=== PATIENT | male | born 1950 | race Caucasian/White ===

== ENCOUNTER 2020-12-25 10:59 | Emergency (ER) | payer OTHER, BC ==
[2020-12-25 11:08] VITALS: BP 164/81; PULSE 107; TEMP 98.3; BMI 25.1
[2020-12-25] MEDS ORDERED: LACTATED RINGERS SOLUTION 1000 ML INFUS.BAG IV ONE (11:38)
[2020-12-25] MEDS ORDERED: ACETAMINOPHEN 1000 MG/100 ML VIAL (NON FORMULARY) IVPB ONE (11:38)
[2020-12-25] MEDS ORDERED: ACETAMINOPHEN INJECTION 100 ML IVPB ONE (12:27)
[2020-12-25 12:46] LABS: INR 1.04 (0.83-1.09); PROTHROMBIN TIME (PATIENT) 12.6 SEC (9.7-13.0)
[2020-12-25 12:48] LABS: ACTIVATED PTT 34.2 SECONDS (25.2-36.5)
[2020-12-25 12:57] LABS: PH,URINE 6.5 (5.0-8.0); URINE APPEARANCE CLEAR; URINE BILIRUBIN NEGATIVE (NEGATIVE); URINE COLOR YELLOW; URINE GLUCOSE (UA) NEGATIVE (NEGATIVE); URINE KETONE NEGATIVE (NEGATIVE); URINE LEUK ESTERASE NEGATIVE (NEGATIVE); URINE NITRITE NEGATIVE (NEGATIVE); URINE PROTEIN NEGATIVE (NEGATIVE); URINE UROBILINOGEN 0.2 mg/dL (0.2-1.0)
[2020-12-25 13:02] LABS: CHLORIDE 102 mmol/L (98-107); SODIUM 135 mmol/L (136-145)
[2020-12-25 13:04] LABS: ALBUMIN 4.1 g/dl (3.4-5.0); CALCIUM 9.2 mg/dL (8.5-10.1)
[2020-12-25 13:05] LABS: ANION GAP 9 MMOL/L (8-16); BLOOD UREA NITROGEN 11.9 mg/dL (7-18); CO2 25 mmol/L (21-32); GLUCOSE,RANDOM 93 mg/dL (74-106)
[2020-12-25 13:07] LABS: BASO % 0.4 % (0-2.0); EOS % 0.2 % (0-4.5); HEMATOCRIT 42.4 % (35.4-49); HEMOGLOBIN 14.6 GM/dL (11.7-16.9); LYMPH % 8.3 % (8-40); MCH 31.8 pg (25.7-33.7); MCHC 34.3 g/dl (32.0-35.9); MEAN CELL VOLUME 92.7 fl (80-96); MEAN PLT VOLUME 7.5 fl (7.5-11.1); MONO % 9.2 % (3.8-10.2); NEUT % 81.9 % (42.8-82.8); PLATELET COUNT 274 10^3/uL (134-434); RBC 4.57 M/mm3 (4.00-5.60); RDW 13.1 % (11.9-15.9); SGPT/ALT 28 U/L (13-61); WHITE BLOOD COUNT 8.1 K/mm3 (4.0-10.0)
[2020-12-25 13:08] LABS: SGOT/AST 25 U/L (15-37)
[2020-12-25 13:09] LABS: BILIRUBIN,TOTAL 1.4 mg/dL (0.2-1); TOT PROT 8.3 g/dl (6.4-8.2)
[2020-12-25 13:10] LABS: ALK PHOS 69 U/L (45-117)
== END 2020-12-25 15:36 | disposition home or self-care (01) ==
LOC: JER 10:59
PROC: 3E033NZ Introduction of Analgesics, Hypnotics, Sedatives into Peripheral Vein, Percutaneous Approach (ICD-10-PCS; principal; 2020-12-25)
DX: K57.92 Diverticulitis of intestine, part unspecified, without perforation or abscess without bleeding (principal)
CPT/HCPCS: 36415; 71045-TC-FY; 74177-TC; 80053; 81003; 84484; 85025; 85610; 85730; 87086; 93005; 93010; 99285-25; C9803; J0131; Q9967; U0003; U0005

== ENCOUNTER 2021-01-15 11:45 | Emergency (ER) | payer OTHER, BC ==
[2021-01-15 12:30] VITALS: BMI 24.4
[2021-01-15] MEDS ORDERED: ACETAMINOPHEN 325 MG TABLET (FP) PO ONE (12:54)
[2021-01-15] MEDS ORDERED: ACETAMINOPHEN 325 MG TABLET (FP) ONE (12:57)
[2021-01-15 13:34] LABS: BASO % 0.7 % (0-2.0); EOS % 0.3 % (0-4.5); HEMATOCRIT 40.6 % (35.4-49); HEMOGLOBIN 14.2 GM/dL (11.7-16.9); LYMPH % 11.6 % (8-40); MCH 32.3 pg (25.7-33.7); MEAN CELL VOLUME 92.3 fl (80-96); MEAN PLT VOLUME 7.3 fl (7.5-11.1); MONO % 9.2 % (3.8-10.2); NEUT % 78.2 % (42.8-82.8); PLATELET COUNT 298 10^3/uL (134-434); RBC 4.39 M/mm3 (4.00-5.60); RDW 12.7 % (11.9-15.9); WHITE BLOOD COUNT 7.6 K/mm3 (4.0-10.0)
[2021-01-15 13:55] LABS: ALBUMIN 4.2 g/dl (3.4-5.0)
[2021-01-15 13:56] LABS: BLOOD UREA NITROGEN 14.7 mg/dL (7-18); CALCIUM 8.9 mg/dL (8.5-10.1)
[2021-01-15 13:57] LABS: MAGNESIUM 2.1 mg/dL (1.8-2.4)
[2021-01-15 14:01] LABS: TOT PROT 8.2 g/dl (6.4-8.2)
[2021-01-15 16:34] VITALS: BP 149/75; PULSE 66; TEMP 97.8
== END 2021-01-15 16:34 | disposition home or self-care (01) ==
LOC: JER 11:45
DX: K57.92 Diverticulitis of intestine, part unspecified, without perforation or abscess without bleeding (principal)
CPT/HCPCS: 36415; 74177-TC; 80053; 83690; 83735; 85025; 93005; 93010; 99284-25; C9803; U0003; U0005

== ENCOUNTER 2022-03-08 10:38 | Emergency (ER) | payer OTHER, BC ==
[2022-03-08 11:34] VITALS: PULSE 98; RESP 18; TEMP 97.8; BMI 25.7
[2022-03-08 12:59] LABS: BASO % 0.6 % (0-2.0); EOS % 0.3 % (0-4.5); HEMATOCRIT 40.7 % (35.4-49); LYMPH % 13.7 % (8-40); MCH 31.5 pg (25.7-33.7); MCHC 34.4 g/dl (32.0-35.9); MEAN CELL VOLUME 91.4 fl (80-96); MEAN PLT VOLUME 7.5 fl (7.5-11.1); MONO % 8.3 % (3.8-10.2); NEUT % 77.1 % (42.8-82.8); PLATELET COUNT 228 10^3/uL (134-434); RBC 4.45 M/mm3 (4.00-5.60); RDW 13.6 % (11.9-15.9); WHITE BLOOD COUNT 6.7 K/mm3 (4.0-10.0)
[2022-03-08 13:21] LABS: CALCIUM 8.9 mg/dL (8.5-10.1)
[2022-03-08 13:22] LABS: ALBUMIN 3.9 g/dl (3.4-5.0); BLOOD UREA NITROGEN 15.3 mg/dL (7-18)
[2022-03-08 13:25] LABS: CREATININE 1.1 mg/dL (0.55-1.3)
[2022-03-08 13:27] LABS: TOT PROT 8.3 g/dl (6.4-8.2)
[2022-03-08 17:21] VITALS: BP 162/74
== END 2022-03-08 17:39 | disposition home or self-care (01) ==
LOC: JER 10:38
DX: R55 Syncope and collapse (principal); R60.0 Localized edema
CPT/HCPCS: 36415; 71046-TC-FY; 80053; 83880; 84484; 85025; 93005; 93010; 99285-25

== ENCOUNTER 2022-09-27 19:44 | Emergency (ER) | payer OTHER, BC ==
[2022-09-27 20:09] VITALS: BP 158/76; PULSE 94; RESP 16; TEMP 97.1; BMI 27.1
[2022-09-27 20:55] LABS: BASO % 0.7 % (0-2.0); EOS % 0.8 % (0-4.5); HEMATOCRIT 40.7 % (35.4-49); HEMOGLOBIN 13.8 GM/dL (11.7-16.9); LYMPH % 15.1 % (8-40); MCH 30.5 pg (25.7-33.7); MCHC 33.9 g/dl (32.0-35.9); MEAN CELL VOLUME 89.8 fl (80-96); MEAN PLT VOLUME 7.2 fl (7.5-11.1); MONO % 13.1 % (3.8-10.2); NEUT % 70.3 % (42.8-82.8); PLATELET COUNT 257 10^3/uL (134-434); RBC 4.53 M/mm3 (4.00-5.60); RDW 13.8 % (11.9-15.9); WHITE BLOOD COUNT 6.4 K/mm3 (4.0-10.0)
[2022-09-27 21:13] LABS: ALBUMIN 3.8 g/dl (3.4-5.0)
[2022-09-27 21:16] LABS: CREATININE 1.3 mg/dL (0.55-1.3)
[2022-09-27 21:18] LABS: BILIRUBIN,TOTAL 0.7 mg/dL (0.2-1)
== END 2022-09-27 22:36 | disposition home or self-care (01) ==
LOC: JER 19:44
DX: I83.893 Varicose veins of bilateral lower extremities with other complications (principal)
CPT/HCPCS: 36415; 80053; 85025; 99283-25

== ENCOUNTER 2022-12-18 10:26 | Inpatient (IN) | payer OTHER, BC ==
[2022-12-18 10:34] VITALS: TEMP 97.8; BMI 26.4
[2022-12-18 12:03] LABS: BASO % 0.5 % (0-2.0); EOS % 0.3 % (0-4.5); HEMATOCRIT 39.1 % (35.4-49); HEMOGLOBIN 13.2 GM/dL (11.7-16.9); LYMPH % 8.8 % (8-40); MCH 30.3 pg (25.7-33.7); MCHC 33.8 g/dl (32.0-35.9); MEAN CELL VOLUME 89.6 fl (80-96); MEAN PLT VOLUME 7.6 fl (7.5-11.1); MONO % 8.5 % (3.8-10.2); NEUT % 81.9 % (42.8-82.8); PLATELET COUNT 236 10^3/uL (134-434); RBC 4.36 M/mm3 (4.00-5.60); RDW 12.8 % (11.9-15.9); WHITE BLOOD COUNT 8.3 K/mm3 (4.0-10.0)
[2022-12-18 12:11] LABS: INR 1.06 (0.83-1.09); PROTHROMBIN TIME (PATIENT) 12.3 SEC (9.7-13.0)
[2022-12-18 12:13] LABS: ACTIVATED PTT 37.4 SECONDS (25.2-36.5)
[2022-12-18 12:38] LABS: POTASSIUM 4.8 mmol/L (3.5-5.1)
[2022-12-18 12:39] LABS: CALCIUM 9.4 mg/dL (8.5-10.1)
[2022-12-18 12:40] LABS: ALBUMIN 3.7 g/dl (3.4-5.0); MAGNESIUM 2.3 mg/dL (1.8-2.4)
[2022-12-18 12:43] LABS: CREATININE 1.2 mg/dL (0.55-1.3)
[2022-12-18 12:44] LABS: BILIRUBIN,TOTAL 1.2 mg/dL (0.2-1)
[2022-12-18 12:45] LABS: TOT PROT 7.6 g/dl (6.4-8.2)
[2022-12-18 12:48] LABS: N-TERMINAL BNP 166.9 pg/ml (5-125)
[2022-12-18 19:35] VITALS: BP 166/64; RESP 16
[2022-12-18 23:00] VITALS: PULSE 36
== END 2022-12-18 23:01 | disposition short-term general hospital (02) | DRG 310 ==
LOC: JER 10:26 → JERBED 13:35
PROVIDERS: ADMIT Internal Medicine; ATTEND Internal Medicine
DX: I44.1 Atrioventricular block, second degree (principal); I25.10 Atherosclerotic heart disease of native coronary artery without angina pectoris; M10.9 Gout, unspecified; E78.5 Hyperlipidemia, unspecified; J44.9 Chronic obstructive pulmonary disease, unspecified; F41.9 Anxiety disorder, unspecified; I10 Essential (primary) hypertension; N40.0 Benign prostatic hyperplasia without lower urinary tract symptoms; I45.2 Bifascicular block; Z95.1 Presence of aortocoronary bypass graft
CPT/HCPCS: 36415; 71045-TC-FY; 80053; 83735; 83880; 84443; 84484; 85025; 85610; 85730; 86618; 86850; 86900; 86901; 87635; 93005; 93010; 99285-25